=== PATIENT | female | born 2000 | race American Indian/Alaskan Native ===

== ENCOUNTER 2020-12-21 11:06 | Emergency (ER) | payer SELFPAY ==
[2020-12-21 11:37] VITALS: BP 124/76
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
== END 2020-12-21 13:11 | disposition left against medical advice (07) ==
LOC: ED 11:06
DX: M25.511 Pain in right shoulder (principal); M25.512 Pain in left shoulder; R10.84 Generalized abdominal pain; Z91.81 History of falling
CPT/HCPCS: 99281